=== PATIENT | female | born 1945 ===

== ENCOUNTER 2024-05-16 08:23 | Day surgery (SDC) | payer MEDICARE, OTHER ==
[2024-05-16 09:16] LABS: Absolute Eosinophils 0.1 K/uL (0-0.5); Absolute Lymphocytes (CBC) 1.2 K/uL (0.7-4.9); Absolute Monocytes 0.6 K/uL (0.1-1.3); Absolute Neutrophil 4.4 K/uL (1.8-8.0); Basophils % 0.6 % (0-1.3); Hematocrit 40.5 % (36.0-45.0); Hemoglobin 13.6 g/dL (12.0-15.0); Lymphocytes % 19.2 % (15.3-44.8); MCH 32.9 pg (27.0-35.0); MCHC 33.5 g/dL (32.0-36.0); MCV 98.4 fL (80-100); MPV 8.2 fL (7.6-11.3); Monocytes % 8.7 % (3.3-12.3); Neutrophils % 69.5 % (41.7-73.7); Platelets 175 thou/uL (152-406); RBC Red Blood Cell Count 4.11 M/uL (3.86-4.86); Red Cell Distribution Width 13.3 % (12.1-15.2)
[2024-05-16 09:19] VITALS: BMI 32.9
[2024-05-16 09:20] LABS: PT Prothrombin Time 11.1 SECONDS (9.4-12.5); PTT, Activated Partial Thromb 33.6 SECONDS (24.3-36.9); Protime INR 0.99
[2024-05-16 09:31] LABS: ALT/SGPT 20 U/L (13-56); AST/SGOT 12 U/L (15-37); Albumin 3.2 g/dL (3.4-5.0); Albumin/Globulin Ratio 0.9 (1.1-1.8); Alkaline Phosphatase 70 U/L (45-117); Anion Gap 6.2 mEq/L (5.0-15.0); BUN Blood Urea Nitrogen 13 mg/dL (7-18); Bicarbonate 30 mEq/L (21-32); Bilirubin Total 0.5 mg/dL (0.2-1.0); Globulin 3.5 g/dL (2.3-3.5); Glomerular Filtration Rate 59 ml/min (=/>90); Glucose Level 122 mg/dL (74-106); Potassium 4.2 mEq/L (3.5-5.1); Protein, Total 6.7 g/dL (6.4-8.2); Sodium Level 137 mEq/L (136-145)
[2024-05-16 09:32] LABS: Bilirubin Direct < 0.2 mg/dL (0-0.2); Bilirubin Indirect, Calculated 0.3 mg/dL (0.2-0.8)
--- NOTE | 2024-05-16 12:05 | RAD REPORT ---
Procedure: Lumbar Puncture For Dx Preprocedure and procedure diagnosis: MEMORY LOSS Anesthesia: 4 mL of buffered 1% lidocaine Specimen: 10 mL of CSF Exposure: 0.2 minutes TECHNIQUE: Prior to the procedure, the risks and benefits of a lumbar puncture were explained to the patient who consented fully to the procedure. 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 A radiopaque object was used to genie the site of best entry into the lumbar canal on the skin. This a carla was then prepped and draped in the usual sterile fashion. Lidocaine was used to anesthetize the skin. A 22-gauge spinal needle was then placed using fluoroscop ic guidance into the central canal of the lumbar spine. Impression: CSF was able to be obtained. A total of 10 mL was obtained. The patient tolerated the procedure well without immediate post procedure complication.
[2024-05-16 12:57] LABS: CSF Glucose 70 mg/dL (40-70)
[2024-05-16 13:27] LABS: Appearance CLEAR (CLEAR); Body Fluid Source CSF; Body Fluid WBC 1 /mm^3; Color of Supernate Not Xanthochromic (Not Xantho); Color of fluid Colorless (COLORLESS); Tube # #4
[2024-05-16 13:32] VITALS: BP 144/68; TEMP 97.3; O2SAT 97
== END 2024-05-16 12:57 | disposition home or self-care (01) ==
LOC: DS 08:23
PROVIDERS: ATTEND Psychiatry & Neurology Neurology with Special Qualifications in Child Neurology
PROC: 009U3ZX Drainage of Spinal Canal, Percutaneous Approach, Diagnostic (ICD-10-PCS; principal; 2024-05-16)
PROC: B01BZZZ Fluoroscopy of Spinal Cord (ICD-10-PCS; 2024-05-16)
DX: G31.84 Mild cognitive impairment of uncertain or unknown etiology (principal); I10 Essential (primary) hypertension; I51.9 Heart disease, unspecified; G62.9 Polyneuropathy, unspecified; R29.90 Unspecified symptoms and signs involving the nervous system
CPT/HCPCS: 36415; 77003; 80048; 80076; 82542; 82945; 84157; 85025; 85610; 85730; 89050